=== PATIENT | female | born 1970 | race Caucasian/White ===

== ENCOUNTER 2017-12-31 19:12 | Emergency (ER) | payer OTHER ==
[2017-12-31] MEDS ORDERED: HYDROCODONE/APAP 5/325 MG TAB ONE (20:05)
[2017-12-31] MEDS ORDERED: IBUPROFEN 400 MG TAB ONE (20:06)
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
[2017-12-31 20:59] LABS: Urine Blood NEGATIVE (NEG); Urine Glucose NEGATIVE (NEG); Urine Protein 1+ (NEG); Urine Specific Gravity 1.025 (1.005-1.030); Urine pH 6.5 (5.0-7.0)
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
[2017-12-31 21:56] VITALS: TEMP 99.3; O2SAT 98
[2017-12-31 21:58] VITALS: BP 153/104
== END 2017-12-31 21:46 | disposition home or self-care (01) ==
LOC: ER 19:12
DX: S30.1XXA Contusion of abdominal wall, initial encounter (principal); V89.2XXA Person injured in unspecified motor-vehicle accident, traffic, initial encounter; R94.09 Abnormal results of other function studies of central nervous system; I10 Essential (primary) hypertension
CPT/HCPCS: 70450; 71250; 72125; 81003; 99284